=== PATIENT | male | born 1990 | race Caucasian/White ===

== ENCOUNTER 2017-04-06 23:48 | Emergency (ER) | payer OTHER ==
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
== END 2017-04-07 01:17 | disposition disaster alternative care site (69) ==
LOC: GACC 23:48
DX: S80.812A Abrasion, left lower leg, initial encounter (principal); M54.5 Low back pain; M25.532 Pain in left wrist; Z90.49 Acquired absence of other specified parts of digestive tract; V49.40XA Driver injured in collision with unspecified motor vehicles in traffic accident, initial encounter
CPT/HCPCS: J3010

== ENCOUNTER → 2017-04-06 | Outpatient (CLI) | payer OTHER | END | disposition disaster alternative care site (69) | LOC: GAMB 23:17 | DX: S39.92XA Unspecified injury of lower back, initial encounter (principal); M54.5 Low back pain; G89.11 Acute pain due to trauma; M25.532 Pain in left wrist; M79.606 Pain in leg, unspecified; V49.9XXA Car occupant (driver) (passenger) injured in unspecified traffic accident, initial encounter | CPT/HCPCS: A0425; A0427; J3010 ==